=== PATIENT | female | born 1970 | race Caucasian/White ===

== ENCOUNTER 2017-07-09 13:18 | Emergency (ER) | payer SELFPAY ==
[~2017-07-09] VITALS: Wt 85.4 kg
[2017-07-09] MEDS ORDERED: ONDANSETRON (ODT) 4 MG TAB ODT STA (14:42)
[2017-07-09] MEDS ORDERED: KETOROLAC 30 MG INJ IM STA (14:42)
[2017-07-09 15:15] LABS: ADD UMIC NO; UR ASCORBIC ACID NEGATIVE (NEGATIVE); UR BILIRUBIN (Dip) NEGATIVE (NEGATIVE); UR BLOOD (Dip) NEGATIVE (NEGATIVE); UR CLARITY CLEAR (CLEAR); UR COLOR YELLOW (YELLOW); UR GLUCOSE (Dip) NEGATIVE (NEGATIVE); UR KETONES (Dip) NEGATIVE (NEGATIVE); UR LEUKOCYTE ESTERASE (Dip) NEGATIVE Leu/ul (NEGATIVE); UR NITRITE (Dip) NEGATIVE (NEGATIVE); UR SPECIFIC GRAVITY (Dip) 1.012 (1.003-1.030); UR TOTAL PROTEIN (Dip) NEGATIVE (NEGATIVE); UR UROBILINOGEN (Dip) NEGATIVE (NEGATIVE)
--- NOTE | 2017-07-09 15:34 | RADRPT ---
PROCEDURE: CT Brain without contrast. CLINICAL INDICATION: Headaches. Neurologic deficit TECHNIQUE: A CT of the brain was performed on multidetector high-resolution CT scanner utilizing a xial sections from the skull base through the vertex without contrast. One or more of the following dose reduction techniques were used: Automated exposure control, Adjustment of the mA and/or kV acc ording to patient size, and/or use of iterative reconstruction technique. DICOM images are available . DOSE: CTDI = 45 mGy and the DLP = 720 mGy-cm. COMPARISON: None available FINDINGS: No acute intracranial hemorrhage, significant mass effect or midline shift. The ny-white different iation is grossly preserved. The ventricles are normal in size for age. Ethmoid sinus mucosal thickening. IMPRESSION: No acute intracranial findings. Ethmoid sinus mucosal thickening. RPTAT: AA .Esequiel Lucia MD, MD Date Time Electronically viewed and signed by .Esequiel Lucia MD, MD on 07/09/2017 15:34 .T/
[2017-07-09] MEDS ORDERED: ONDA8TAB14 PO (16:12)
[2017-07-09] MEDS ORDERED: AZIT250T94 PO (16:12)
--- NOTE | 2017-07-09 16:15 | ERD ---
ER Documentation Chief Complaint Chief Complaint HEADACHE THIS MORNING, N/V, HX OF MIGRAINE HPI This 47-year-old female presents with a right-sided headache behind the eye this morning. She had some flashing lights and some vomiting. She has a history of migraines. Feels similar although worse to her previous migraines. She takes Tylenol at home. She has [place] but does not like to take it because it makes her too drowsy. She denies any bowel or bladder incontinence, weakness , fevers. She may have some mild congestion. ROS All systems reviewed and are negative except as per history of present illness. Medications Home Meds Active Scripts Ondansetron (Ondansetron Odt) 8 Mg Tab.rapdis, 8 MG PO Q6H Y for NAUSEA AND/OR VOMITING, #10 TAB Prov:HIWOT MILLER MD 07/09/17 Azithromycin* (Zithromax*) 250 Mg Tablet, 250 MG PO .ZPACK DIRECTED, #6 TAB TAKE 500 MG (2 TABS) THE FIRST DAY THEN 250 MG (1 TAB) DAYS 2-5 Prov:HIWOT MILLER MD 07/09/17 Allergies Allergies: Coded Allergies: Penicillins (Verified Allergy, Severe, 07/09/17) pt alomost when she took pcn ciprofloxacin (Verified Allergy, Severe, 07/09/17) metoclopramide (Verified Allergy, Severe, 07/09/17) prochlorperazine (Verified Allergy, Severe, 07/09/17) PMhx/Soc History of Surgery: Yes (tonsillectomy,sinus sx,x4 laparoscopic sx,1 laparotomy ) Anesthesia Reaction: No Hx Neurological Disorder: No Hx Respiratory Disorders: No Hx Cardiac Disorders: No Hx Psychiatric Problems: No Hx Miscellaneous Medical Probl: Yes (seasonal allergies) Physical Exam Vitals Vital Signs Date Time Temp Pulse Resp B/P Pulse Ox O2 Delivery O2 Flow Rate FiO2 07/09/17 13:21 99.5 105 17 145/82 96 Physical Exam Const: [] Alert, [id number]. Head: Atraumatic Eyes: Normal Conjunctiva and eyes PERRLA and extraocular movements intact. ENT: Normal External Ears, Nose and Mouth. TMs and oropharynx normal. Neck: Full range of motion..~ No meningismus. Resp: Clear to auscultation bilaterally Cardio: Regular rate and rhythm, no murmurs Abd: Soft, non tender, non distended. Normal bowel sounds Skin: No petechiae or rashes Back: No midline or flank tenderness Ext: No cyanosis, or edema Neur: Awake and alert no appreciable focal neurologic deficits. Psych: Normal Mood and Affect Results 24 hrs Laboratory Tests Test 07/09/17 15:00 Urine Color YELLOW Urine Clarity CLEAR Urine pH 7.0 Urine Specific [place] 1.012 Urine Ketones NEGATIVEmg/dL Urine Nitrite NEGATIVEmg/dL Urine Bilirubin NEGATIVEmg/dL Urine Urobilinogen NEGATIVEmg/dL Urine Leukocyte Esterase NEGATIVELeu/ul Urine Hemoglobin NEGATIVEmg/dL Urine Glucose NEGATIVEmg/dL Urine Total Protein NEGATIVEmg/dl Current Medications Medications (Trade) Dose Ordered Sig/Bj Route PRN Reason Start Time Stop Time Status Last Admin Dose Admin Ketorolac Tromethamine (Toradol) 30 mg ONCE STAT IM 07/09/17 14:42 07/09/17 14:44 DC 07/09/17 15:00 Ondansetron HCl (Zofran Odt) 8 mg ONCE STAT ODT 07/09/17 14:42 07/09/17 14:44 DC 07/09/17 15:00 Procedures/MDM Urine is negative. HCG is negative. CT brain shows ethmoid sinus thickening. No additional acute findings. Patient was given Toradol 30 mg IM and Zofran 8 mg by mouth. She presents with headache of uncertain etiology since this morning. He has characteristics of a migrainous headache. Patient has had trials of multiple medications for headache in the past with either adverse effects or persistent symptoms. Patient usually takes Tylenol and Motrin as advised to continue ibuprofen and Motrin. Will give Zithromax for possible sinusitis as well as Zofran for nausea. Patient is advised to follow-up with primary doctor return to the ER for new worsening symptoms. No current symptoms of meningitis, central nervous lesions, bleeding, and patient has no current visual complaints. The patient was stable with no new complaints during the ER course. Clinically, there is no current evidence to suggest meningitis, sepsis, acute abdomen, pneumonia, acute coronary syndrome, pulmonary embolism, or any other emergent condition appearing to require further evaluation or hospitalization. The patient should certainly return for any new or worsening symptoms per the aftercare instructions. They should otherwise follow-up with her primary care doctor for reevaluation this week. Departure Diagnosis: Primary Impression: Headache Headache type: unspecified Headache chronicity pattern: unspecified pattern Intractability: not intractable Qualified Code: R51 - Nonintractable headache, unspecified chronicity pattern, unspecified headache type Patient Instructions: Self-Care for Headaches, Headache, Unspecified, Sinusitis , Abx Tx Additional Instructions: Continue current medications for pain for headache. Recheck for new or worsening symptoms or primary care doctor. HIWOT MILLER MD Jul 09, 2017 16:15
== END 2017-07-09 16:24 | disposition home or self-care (01) ==
LOC: FTE 13:18
DX: R51 Headache (principal); R11.10 Vomiting, unspecified
CPT/HCPCS: 70450; 81003; 96372; 99285; J1885